=== PATIENT | male | born 1985 | race Caucasian/White ===

== ENCOUNTER 2021-01-20 23:18 | Emergency (ER) | payer OTHER ==
[~2021-01-20 23:18] MED LIST: ATIVAN0.5 MG PO; BACTRIM DS TAB1 EACH PO; BENTYL 20MG TAB20 MG PO; CARAFATE1 GM PO; CELEBREX100 MG PO; COLACE 100MG C100 MG PO; COLACE100 MG PO; CYMBALTA30 MG PO; CYMBALTA60 MG PO; DESYREL 50 MG T50 MG PO; HYDROCODON-ACE1 EAC4 PO; LITHIUM CARBON300 M3 PO; LORTAB 7.5-3251 EACH PO; PANTOPRAZOLE SO40 MG PO; PERCOCET 5-3251 EACH PO; PERCOCET 5/325 T1 EA PO; PHENERGAN 25 MG25 M1 PO; PROTONIX40 MG PO; QUETIAPINE FUM300 MG PO; SEROQUEL200 MG PO; TESTOSTERO200 MG/1 M IM; TORADOL 10 MG T10 MG PO; VISTARIL 50 MG50 MG PO; XARELTO20 MG PO; ZOFRAN4 MG PO
[2021-01-21 00:23] LABS: HEMOGLOBIN 13.6 gm/dl (14.0-17.5); RED BLOOD COUNT 5.35 M/UL (4.20-5.50); WHITE BLOOD COUNT 8.4 K/UL (4.5-11.0)
[2021-01-21 00:41] LABS: BUN/CREATININE RATIO 11 (0-10)
== END 2021-01-21 02:47 | disposition home or self-care (01) ==
LOC: ER1 23:18
PROVIDERS: Emergency Medicine
DX: K40.90 Unilateral inguinal hernia, without obstruction or gangrene, not specified as recurrent (principal)
CPT/HCPCS: 80053; 81001; 85025; 99284; Q9967

== ENCOUNTER 2021-02-25 22:17 | Emergency (ER) | payer OTHER ==
[2021-02-25] MEDS ORDERED: LODINE CAP 300300 MG PO (23:12)
== END 2021-02-25 23:40 | disposition home or self-care (01) ==
LOC: ER1 22:17
DX: S40.252A Superficial foreign body of left shoulder, initial encounter (principal); X50.1XXA Overexertion from prolonged static or awkward postures, initial encounter
CPT/HCPCS: 73060; 99283

== ENCOUNTER 2021-09-09 16:42 | Emergency (ER) | payer BC ==
[~2021-09-09 16:42] MED LIST changes: +LODINE CAP 300300 MG PO
[2021-09-09 17:49] LABS: HEMOGLOBIN 14.3 gm/dl (14.0-17.5); RED BLOOD COUNT 5.6 M/UL (4.20-5.50); WHITE BLOOD COUNT 6.9 K/UL (4.5-11.0)
[2021-09-09 18:13] LABS: BUN/CREATININE RATIO 8 (0-10)
== END 2021-09-09 21:48 | disposition left against medical advice (07) ==
LOC: ER1 16:42
PROVIDERS: Physician Assistant
DX: R06.02 Shortness of breath (principal); R05.9 Cough, unspecified; I10 Essential (primary) hypertension; Z20.822 Contact with and (suspected) exposure to COVID-19
CPT/HCPCS: 0240U; 80053; 82550; 82553; 83874; 83880; 84484; 85025; 85610; 85730; 93005; 99283; Q9967

== ENCOUNTER 2021-11-14 18:51 | Emergency (ER) | payer OTHER ==
[2021-11-14 21:51] LABS: HEMOGLOBIN 16.3 gm/dl (14.0-17.5); RED BLOOD COUNT 5.9 M/UL (4.20-5.50); WHITE BLOOD COUNT 9.1 K/UL (4.5-11.0)
[2021-11-14 22:11] LABS: BUN/CREATININE RATIO 11 (0-10)
[2021-11-14] MEDS ORDERED: PHENERGAN 25 MG25 M1 PO (23:52)
== END 2021-11-15 00:22 | disposition home or self-care (01) ==
LOC: ER1 18:51
PROVIDERS: Family Medicine
DX: R10.31 Right lower quadrant pain (principal); R10.32 Left lower quadrant pain; R11.2 Nausea with vomiting, unspecified; R19.7 Diarrhea, unspecified; I10 Essential (primary) hypertension
CPT/HCPCS: 80053; 81001; 83690; 85025; 96374; 96375; 99284; J1885; J2405; J2550; Q9967